=== PATIENT | female | born 1995 | race Caucasian/White ===

== ENCOUNTER → 2016-06-24 | Outpatient (CLI) | payer BC ==
[~2016-06-24] MED LIST: AZIT250T PO; FLUORIDE PO; MULT-506 PO; PRED20TA PO
[2016-06-28 00:01] LABS: CHLAMYDIA TRACH RNA*** NOT DETECTED (NOT DETECTED); GC (NEIS GONORRHOEAE)RNA** NOT DETECTED (NOT DETECTED)
== END | disposition home or self-care (01) ==
LOC: C.LABSPEC 17:47
PROVIDERS: ATTEND Obstetrics & Gynecology
DX: N89.8 Other specified noninflammatory disorders of vagina (principal)

== ENCOUNTER → 2016-06-24 | Outpatient (CLI) | payer BC | END | disposition home or self-care (01) | LOC: C.PAPS 10:06 | PROVIDERS: ATTEND Obstetrics & Gynecology | DX: Z01.419 Encounter for gynecological examination (general) (routine) without abnormal findings (principal) ==

== ENCOUNTER → 2016-10-14 | Outpatient (CLI) | payer BC ==
[2016-10-14 13:03] LABS: CHOLESTEROL/HDL RATIO 2.3
== END | disposition home or self-care (01) ==
LOC: C.LAB 11:02
PROVIDERS: ATTEND Internal Medicine
DX: Z00.00 Encounter for general adult medical examination without abnormal findings (principal)

== ENCOUNTER → 2017-06-30 | Outpatient (CLI) | payer BC | END | disposition home or self-care (01) | LOC: C.PAPS 16:59 | PROVIDERS: ATTEND Obstetrics & Gynecology | DX: Z01.419 Encounter for gynecological examination (general) (routine) without abnormal findings (principal) ==

== ENCOUNTER → 2017-06-30 | Outpatient (CLI) | payer BC | END | disposition home or self-care (01) | LOC: C.LABSPEC 16:22 | PROVIDERS: ATTEND Obstetrics & Gynecology | DX: Z11.3 Encounter for screening for infections with a predominantly sexual mode of transmission (principal) ==

== ENCOUNTER → 2017-10-09 | Outpatient (CLI) | payer BC ==
[~2017-10-09] MED LIST changes: -AZIT250T PO; +BUPR-79 PO; +BUPRTAB51 PO; +ESCI1TAB10 PO; -FLUORIDE PO; +OXYC-57 PO; -PRED20TA PO
== END | disposition home or self-care (01) ==
LOC: C.LAB1850 09:12
PROVIDERS: ATTEND Physician Assistant
DX: Z00.00 Encounter for general adult medical examination without abnormal findings (principal)

== ENCOUNTER 2018-10-28 13:23 | Inpatient (IN) ==
[2018-10-28 14:52] LABS: Appearance Urine Clear (Clear); Bilirubin Urine Negative (Negative); Blood Urine Negative (Negative); Color Urine Yellow; Glucose Urine UA Negative (Negative); Ketones Urine Negative (Negative); Leukocyte Esterase Urine Negative (Negative); Nitrite Urine Negative (Negative); Protein Urine Negative (Negative); Specific Gravity Urine 1.012 (1.000-1.030); Urobilinogen Urine Negative (Negative); pH Urine 6.5 (4.5-7.5)
[2018-10-28 15:02] LABS: Basophils # (auto) 0.03 K/uL (0-0.2); Basophils % (auto) 0.4 %; Eosinophils # (auto) 0.05 K/uL (0-0.5); Eosinophils % (auto) 0.6 %; Hematocrit (blood only) 40.1 % (37-47); Hemoglobin 13.9 g/dL (12.0-16.0); Immature Granulocytes # (auto) 0.01 K/uL (0.00-0.02); Immature Granulocytes % (auto) 0.1 %; Lymphocytes # (auto) 1.76 K/uL (1.2-3.4); Lymphocytes % (auto) 22.7 %; Mean Corpuscular Hgb Conc 34.7 g/dL (32-36); Mean Corpuscular Volume 87.2 fL (80-100); Mean Platelet Volume 9.6 fL (7.4-10.4); Monocytes # (auto) 0.77 K/uL (0.11-0.59); Monocytes % (auto) 9.9 %; Neutrophils # (auto) 5.15 K/uL (1.4-6.5); Neutrophils % (auto) 66.3 %; Platelet Count 187 K/uL (130-400); RDW Coefficient of Variation 12.4 % (11.5-14.5); White Blood Count 7.77 K/uL (4.8-10.8)
[2018-10-28 15:12] LABS: Amphetamines+Metham, Urine Neg (Neg); Barbiturates, Urine Neg (Neg); Benzodiazepine, Urine Neg (Neg); Cocaine, Urine Neg (Neg); MDMA (Ecstacy), Urine Neg (Neg); Methadone, Urine Neg (Neg); Opiate, Urine Neg (Neg); Phencyclidine, Urine Neg (Neg)
[2018-10-28 15:22] LABS: Albumin Level 4.2 gm/dl (3.4-5.0); BUN Creatinine Ratio 17.8 (10-20); Creatinine Clr Calc Pharmacy 111.8 ml/min; Est GFR (African American) 145.8; Est GFR (Non-African American) 125.8; Potassium 3.9 mmol/L (3.5-5.1)
[2018-10-28 15:24] LABS: Acetaminophen < 2 ug/ml (10-30); Salicylate < 1.7 mg/dl (2.8-20)
[2018-10-28 15:32] LABS: Albumin Globulin Ratio 1.4 (0.9-2); Bilirubin,Total 0.5 mg/dl (0.2-1); Total Protein 7.2 gm/dl (6.4-8.2)
[2018-10-28 16:07] LABS: Pregnancy Test, Serum Negative (Negative)
--- NOTE | 2018-10-28 16:21 | Emergency Department Note ---
Entered by Mariusz Calix acting as a scribe for Lala Larkin DO History of Present Illness General Chief complaint: Mental Health Evaluation Stated complaint: MENTAL HEALTH EVALUATION Time Seen by Provider: 10/28/18 13:58 Source: patient and other (boyfriend and lead case manager) History of Present Illness Onset (ago): month(s) (few) Location: head Pain Consistency: + other (worsening) Quality: + other (anxiety and depression) Associated symptoms: + loss of appetite (slight) and + other (+overwhelming stress; +wants to hurt self; +cut onleft wrist; +sleeping a little less; +suicidal ideation; -dizziness; -bowel issues; -urinary issues; -menstrual cycle issues) The patient is a 23 year old female who presents to the Emergency Room with co mplaints of worsening anxiety and depression over the past few months. The patient reports that she feels very stressed recently and that it has become overwhelming. The patient notes she started taking Pristiq in the last few weeks of September. The patient reports that she feels the medication has made her feel slightly better, but she notes she can not [employer] the true effect that it has had due to the her grandmother passing away last week. The patient does note that before the medicine, she would uncontrollably cry, but these symptoms have improved due to Pristiq. The patient notes a history of anxiety and depression, but she reports feeling worse lately with stress. The patient notes going to [facility] for therapy. The patient and her boyfriend report that therapy has helped. The patient states that it has gotten to the point where she wants to hurt herself. The patient reports that the first time she felt like this was in high school, but she notes these feelings have increased in the past 8 months. The patient notes she has cut her wrists 4 times in her life, but the boyfriend of the the patient reports that the patient has cut her wrist twice in the past couple months. The patient states she cuts herself more to relieve stress than wanting to . She notes that she has only cut her wrist and never has cut abdomen or legs. The boyfriend reports the patient woke him up in the middle of the night last night crying, real anxious, and kept saying that she "does not want to be here". The patient states that she knows she needs to resolve a lot of anxiety in her life that she does not know how to resolve, and she states that this is what causes her to cut her wrist. The patient notes she used a wine bottle backpackers manager to cut her left wrist last night. The patient believes she has had a recent tetanus shot, but the patient notes she used an alcohol wipe before the cut. The patient states that she has been sleeping and eating a little less recently, but the patient links the decreased appetite with new medication. The patient denies dizziness, bowel issues, urinary issues, or menstrual cycle issues. The patient denies smoking or using recreational drugs. She notes drinking alcohol socially about 2-3 times a month. 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 Melissa-[employer] Code Enforcement Officer reports that the patient stated to her that suicide would be easier than dealing with everything in her life. Home Medications Home Medications Medication Instructions Recorded Confirmed Type desvenlafaxine succinate [Pristiq] 50 mg PO QAM 10/28/18 10/28/18 History lorazepam [Ativan] 0.5 mg PO BID PRN 10/28/18 10/28/18 History Allergies Allergy/AdvReac Type Severity Reaction Status Date / Time No Known Allergies Allergy Severe Verified 08/09/17 11:15 Past Med/Surg History Medical History History of intrauterine contraceptive device Surgical History Hx of laparoscopy Family History Grandmother (Maternal) Hx of diabetes mellitus Mother Hx of endometriosis Aunt Hx of endometriosis Grandfather (Maternal) Family history of hypertension Social History Preferred Language: Kyrgyz Communication Ability: Effective Quality Director Required: No Beliefs That Will Affect Care: None Current Living Situation: Parent current occupational status: employed and student 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 and A total of 10 systems reviewed and were otherwise negative Physical Exam Vital Signs Vital Signs - 24 hr 10/28/18 13:40 10/28/18 15:49 10/28/18 17:29 Temperature 37.2 C Temperature Source Oral Sepsis Recent Fever Within 48 Hours No Sepsis New/Unexplained Change in Mental Status No Sepsis Action Taken by Nursing No Action Required Pulse Rate 83 73 Pulse Rate [Finger] 73 Respiratory Rate 18 18 18 Respiratory Depth Normal Blood Pressure 128/75 135/66 Blood Pressure [Left Arm] 117/66 Blood Pressure Mean 92 Blood Pressure Mean [Left Arm] 83 Pulse Oximetry 98 99 99 Oxygen Delivery Method Room Air Room Air Room Air GENERAL: alert, well appearing, well nourished, no distress, non-toxic EYE EXAM: normal conjunctiva, PERRL and EOM's grossly intact OROPHARYNX: no exudate, no erythema, lips, buccal mucosa, and tongue normal and mucous membranes are moist NECK: supple, no nuchal rigidity, no adenopathy, non-tender LUNGS: Clear to auscultation. Normal chest wall mechanics, no w/r/r HEART: no murmurs, S1 normal and S2 normal ABDOMEN: abdomen soft, non-tender, normo-active bowel sounds, no masses, no rebound or guarding. BACK: Back is symmetrical on inspection and there is no deformity, no midline t enderness, no CVA tenderness. SKIN: no rashes and no bruising UPPER EXTREMITIES: upper extremities are grossly normal. Superficial laceration noted to distal ventral left forearm with no active bleeding. LOWER EXTREMITIES: No pitting edema. FROM, nml pulses b/l. NEURO EXAM: Normal sensorium, cranial nerves II-XII grossly intact, normal speech, no gross weakness of arms, no gross weakness of legs. Course 1416: Past medical records reviewed. The patient was evaluated in room A5. A complete history and physical exam was performed. 1645: Patient seen and evaluated by psychiatric lead case manager, initially Melissa and then additional evaluation by Martinez. Case referred to [facility] S. for possible admission. 1735: 201 signed by myself. Pt admitted to 3S. Medical Decision Making Differential Diagnosis Differential diagnosis: Etiologies such as mood disorder, infection, hypoglycemia, electrolyte abnormalities, cardiac sources, intracerebral event, toxicologic, neurologic, as well as others were entertained. Medical Records Attestation: I reviewed the patient's medical records. Home Medications Current Medication List: was personally reviewed by me Laboratory Data Attestation: I reviewed the patient's lab results. Result diagrams: 10/28/18 14:48 10/28/18 14:48 Lab Results 10/28/18 10/28/18 10/28/18 Range/Units 13:52 13:52 14:48 WBC 7.77 (4.8-10.8) K/uL RBC 4.60 (4.2-5.4) M/uL Hgb 13.9 (12.0-16.0) g/dL Hct 40.1 (37-47) % MCV 87.2 (80-100) fL MCH 30.2 (25-34) pg MCHC 34.7 (32-36) g/dL RDW Std Deviation 40.0 (36.4-46.3) fL RDW Coeff of José Miguel 12.4 (11.5-14.5) % Plt Count 187 (130-400) K/uL MPV 9.6 (7.4-10.4) fL Immature Gran % (Auto) 0.1 % Neut % (Auto) 66.3 % Lymph % (Auto) 22.7 % Donley % (Auto) 9.9 % Eos % (Auto) 0.6 % Baso % (Auto) 0.4 % Immature Gran # (Auto) 0.01 (0.00-0.02) K/uL Neut # (Auto) 5.15 (1.4-6.5) K/uL Lymph # (Auto) 1.76 (1.2-3.4) K/uL Donley # (Auto) 0.77 H (0.11-0.59) K/uL Eos # (Auto) 0.05 (0-0.5) K/uL Baso # (Auto) 0.03 (0-0.2) K/uL Sodium (136-145) mmol/L Potassium (3.5-5.1) mmol/L Chloride (98-107) mmol/L Carbon Dioxide (21-32) mmol/L Anion Gap (3-11) BUN (7-18) mg/dl Creatinine (0.6-1.2) mg/dl Est Cr Clr Drug Dosing ml/min Est GFR ( Amer) Est GFR (Non-Af Amer) BUN/Creatinine Ratio (10-20) Glucose (70-99) mg/dl Calcium (8.5-10.1) mg/dl Total Bilirubin (0.2-1) mg/dl AST (15-37) U/L ALT (12-78) U/L Alkaline Phosphatase (45-117) U/L Total Protein (6.4-8.2) gm/dl Albumin (3.4-5.0) gm/dl Globulin (2.5-4.0) gm/dl Albumin/Globulin Ratio (0.9-2) TSH (0.300-4.500) uIu/ml HCG, Qual (Negative) Urine Color Yellow Urine Appearance Clear (Clear) Urine pH 6.5 (4.5-7.5) Ur Specific [place] 1.012 (1.000-1.030) Urine Protein Negative (Negative) Urine Glucose (UA) Negative (Negative) Urine Ketones Negative (Negative) Urine Blood Negative (Negative) Urine Nitrite Negative (Negative) Urine Bilirubin Negative (Negative) Urine Urobilinogen Negative (Negative) Ur Leukocyte Esterase Negative (Negative) Salicylates (2.8-20) mg/dl Urine Opiates Screen Neg (Neg) Ur Methadone, Qual Neg (Neg) Acetaminophen (10-30) ug/ml Urine Barbiturates Neg (Neg) Ur Phencyclidine (PCP) Neg (Neg) U Amphetamin/Meth Scrn Neg (Neg) MDMA (Ecstasy) Screen Neg (Neg) U Benzodiazepines Scrn Neg (Neg) Ur Cocaine Metabolite Neg (Neg) U Marijuana (THC) Screen Neg (Neg) Ethyl Alcohol mg/dL (0-3) mg/dl 10/28/18 10/28/18 10/28/18 Range/Units 14:48 14:48 14:48 WBC (4.8-10.8) K/uL RBC (4.2-5.4) M/uL Hgb (12.0-16.0) g/dL Hct (37-47) % MCV (80-100) fL MCH (25-34) pg MCHC (32-36) g/dL RDW Std Deviation (36.4-46.3) fL RDW Coeff of José Miguel (11.5-14.5) % Plt Count (130-400) K/uL MPV (7.4-10.4) fL Immature Gran % (Auto) % Neut % (Auto) % Lymph % (Auto) % Donley % (Auto) % Eos % (Auto) % Baso % (Auto) % Immature Gran # (Auto) (0.00-0.02) K/uL Neut # (Auto) (1.4-6.5) K/uL Lymph # (Auto) (1.2-3.4) K/uL Donley # (Auto) (0.11-0.59) K/uL Eos # (Auto) (0-0.5) K/uL Baso # (Auto) (0-0.2) K/uL Sodium 141 (136-145) mmol/L Potassium 3.9 (3.5-5.1) mmol/L Chloride 107 (98-107) mmol/L Carbon Dioxide 27 (21-32) mmol/L Anion Gap 7.0 (3-11) BUN 11 (7-18) mg/dl Creatinine 0.64 (0.6-1.2) mg/dl Est Cr Clr Drug Dosing 111.8 ml/min Est GFR ( Amer) 145.8 Est GFR (Non-Af Amer) 125.8 BUN/Creatinine Ratio 17.8 (10-20) Glucose 93 (70-99) mg/dl Calcium 9.0 (8.5-10.1) mg/dl Total Bilirubin 0.5 (0.2-1) mg/dl AST 14 L (15-37) U/L ALT 32 (12-78) U/L Alkaline Phosphatase 63 (45-117) U/L Total Protein 7.2 (6.4-8.2) gm/dl Albumin 4.2 (3.4-5.0) gm/dl Globulin 3.0 (2.5-4.0) gm/dl Albumin/Globulin Ratio 1.4 (0.9-2) TSH 1.180 (0.300-4.500) uIu/ml HCG, Qual (Negative) Urine Color Urine Appearance (Clear) Urine pH (4.5-7.5) Ur Specific [place] (1.000-1.030) Urine Protein (Negative) Urine Glucose (UA) (Negative) Urine Ketones (Negative) Urine Blood (Negative) Urine Nitrite (Negative) Urine Bilirubin (Negative) Urine Urobilinogen (Negative) Ur Leukocyte Esterase (Negative) Salicylates < 1.7 L (2.8-20) mg/dl Urine Opiates Screen (Neg) Ur Methadone, Qual (Neg) Acetaminophen < 2 L (10-30) ug/ml Urine Barbiturates (Neg) Ur Phencyclidine (PCP) (Neg) U Amphetamin/Meth Scrn (Neg) MDMA (Ecstasy) Screen (Neg) U Benzodiazepines Scrn (Neg) Ur Cocaine Metabolite (Neg) U Marijuana (THC) Screen (Neg) Ethyl Alcohol mg/dL < 3.0 (0-3) mg/dl 10/28/18 Range/Units 14:55 WBC (4.8-10.8) K/uL RBC (4.2-5.4) M/uL Hgb (12.0-16.0) g/dL Hct (37-47) % MCV (80-100) fL MCH (25-34) pg MCHC (32-36) g/dL RDW Std Deviation (36.4-46.3) fL RDW Coeff of José Miguel (11.5-14.5) % Plt Count (130-400) K/uL MPV (7.4-10.4) fL Immature Gran % (Auto) % Neut % (Auto) % Lymph % (Auto) % Donley % (Auto) % Eos % (Auto) % Baso % (Auto) % Immature Gran # (Auto) (0.00-0.02) K/uL Neut # (Auto) (1.4-6.5) K/uL Lymph # (Auto) (1.2-3.4) K/uL Donley # (Auto) (0.11-0.59) K/uL Eos # (Auto) (0-0.5) K/uL Baso # (Auto) (0-0.2) K/uL Sodium (136-145) mmol/L Potassium (3.5-5.1) mmol/L Chloride (98-107) mmol/L Carbon Dioxide (21-32) mmol/L Anion Gap (3-11) BUN (7-18) mg/dl Creatinine (0.6-1.2) mg/dl Est Cr Clr Drug Dosing ml/min Est GFR ( Amer) Est GFR (Non-Af Amer) BUN/Creatinine Ratio (10-20) Glucose (70-99) mg/dl Calcium (8.5-10.1) mg/dl Total Bilirubin (0.2-1) mg/dl AST (15-37) U/L ALT (12-78) U/L Alkaline Phosphatase (45-117) U/L Total Protein (6.4-8.2) gm/dl Albumin (3.4-5.0) gm/dl Globulin (2.5-4.0) gm/dl Albumin/Globulin Ratio (0.9-2) TSH (0.300-4.500) uIu/ml HCG, Qual Negative (Negative) Urine Color Urine Appearance (Clear) Urine pH (4.5-7.5) Ur Specific [place] (1.000-1.030) Urine Protein (Negative) Urine Glucose (UA) (Negative) Urine Ketones (Negative) Urine Blood (Negative) Urine Nitrite (Negative) Urine Bilirubin (Negative) Urine Urobilinogen (Negative) Ur Leukocyte Esterase (Negative) Salicylates (2.8-20) mg/dl Urine Opiates Screen (Neg) Ur Methadone, Qual (Neg) Acetaminophen (10-30) ug/ml Urine Barbiturates (Neg) Ur Phencyclidine (PCP) (Neg) U Amphetamin/Meth Scrn (Neg) MDMA (Ecstasy) Screen (Neg) U Benzodiazepines Scrn (Neg) Ur Cocaine Metabolite (Neg) U Marijuana (THC) Screen (Neg) Ethyl Alcohol mg/dL (0-3) mg/dl Blood Pressure Blood Pressure Findings: Normal blood pressure MDM Narrative Patient with past history of anxiety and depression, however recently more suicidal with self-harm. Patient already with outpatient psychiatrist and counselor, however symptoms appear to be worsening. Patient was agreeable for inpatient treatment, and was admitted to 3 S. Patient calm and cooperative here, labs otherwise reassuring. Impression & Plan Depression, Anxiety, Suicidal ideation Discharge Plan Visit Data *Final* Discharge Date/Time: 10/28/18 17:29 Chief Complaint: Mental Health Evaluation Stated Complaint: MENTAL HEALTH EVALUATION ED Provider: Lala Larkin Discharge Problem: Depression, Anxiety, Suicidal ideation Patient Disposition: Admitted As Inpatient Discharge Instructions Interventions: ED Discharge Assessment Last Done: 10/28/18 17:29 Discharge Problem: Depression Qualifiers: Depression Type: major depressive disorder Major depression recurrence: recurrent Active/Remission status: currently active Major depression episode severity: moderate Qualified Code(s): F33.1 - Major depressive disorder, recurrent, moderate The scribe's documentation has been prepared under my direction and personally reviewed by me in its entirety. I confirm that the note above accurately reflects all work, treatment, procedures, and medical decision making performed by me.
[2018-10-28] MEDS ORDERED: ACETAMINOPHEN 325 MG TAB PO PRN (16:56)
[2018-10-28] MEDS ORDERED: ALUMINUM/MAGNESIUM SUSP 30 ML UDC PO PRN (16:56)
[2018-10-28] MEDS ORDERED: SODIUM CHLORIDE 0.65% NA SOLN 45 ML (OCEAN) PRN (16:56)
[2018-10-28] MEDS ORDERED: BISMUTH SUBSALICYLATE PER ML OMNICELL CHARGE PO PRN (16:56)
[2018-10-28] MEDS ORDERED: MAGNESIUM HYDROXIDE SUSP 30 ML UDC PO PRN (16:56)
[2018-10-28] MEDS ORDERED: LORazepam 0.5 MG TAB PO PRN (16:58)
[2018-10-29] MEDS ORDERED: DESVENLAFAXINE SUCCINATE PO SCH (09:00)
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
[2018-10-29] MEDS ORDERED: NON-FORMULARY PATIENT'S OWN MED ONE (13:23)
[2018-10-29] MEDS ORDERED: BACITRACIN OINT 15 GM TUBE EXT PRN (14:04)
[2018-10-30] MEDS: DESVENLAFAXINE SUCCINATE PO SCH (07:58)
--- NOTE | 2018-10-30 09:01 | Psychiatric Progress Note ---
Date of Service October 30, 2018 Impression / Recommendations Impression 23-year-old female admitted voluntarily for inpatient psychiatric treatment the evening of 10/28/2018 due to worsening depression, anxiety, and reports of suicidal ideation. Patient has experienced several recent situational stressors including the of her grandmother within the past 2 weeks, relationship stressors with her boyfriend just over 1 year, and increased difficulty at work. Patient had endorsed passive suicidal ideation, verbalizing that suicide would be "easier than dealing with everything in her life." Patient was admitted voluntarily for medication adjustments and more intensive therapy to target the above concerns. Patient had recently been started on desvenlafaxine, and was titrated to a dose of 50 mg within the last 3 weeks. Pt tolerating titration to 100mg daily without reported concerns. Pt did participate in family meeting with boyfriend this afternoon. At this time, patient is considered to still be at high risk of harm to self if she is discharged prematurely without adequate medication of risk factors. (1) Suicidal ideation: 10/29 - Admitted to a locked inpatient behavioral health unit, on q15 minute safety checks - Encourage medication initiation/adjustments as indicated - Encourage participation in group and recreational therapies - Gather collateral information from outpatient providers - Suggest family meeting to involve outpatient supports in safety planning - Arrange appropriate aftercare 10/30 - Denies suicidal ideation; continue monitoring to ensure resolution of SI is consistent (2) Anxiety: 10/29 - Titrate desvenlafaxine to 100mg daily; received 50mg dose this afternoon in addition to scheduled 50mg qAM dose - If tolerability concerns, can also call in 25mg to retail pharmacy and titration to 75mg daily - will observe to see if this lower dose is necessary - Home lorazepam continued, available 0.5mg BID prn; prn hydroxyzine is also available for acute anxiety - Encourage participation in group and recreational programming - Encourage development of healthy and effective coping strategies - Patient encouraged to consider who she would like involved with a family meeting; recommending contact with the boyfriend at the very least, as relationship stressors seem to be playing a rather significant role in presentation - Coordinate care with Dr. Cheyenne Alexander and Grisel Figueroa LCSW at [facility] 10/30 - Continue desvenlafaxine at 100mg; tolerating well thus far - Continue lorazepam 0.5mg BID - Participated in family meeting with boyfriend today - Continue to encourage development of healthy and effective coping strategies (3) Depression: 10/29 - As above - titrating desvenlafaxine to 100mg daily 10/30 - As above (4) Self-inflicted laceration of wrist: 10/29 - Superficial excoriation to left wrist visualized; 5-10 healing lacerations are observed, no evidence of drainage or infection - Continue to monitor healing process - Bacitracin available prn to prevent infection - Encourage development of healthy and effective coping strategies to take the place of self-harm urges Inventory Assets Strengths: support of family/boyfriend; established outpatient providers; intelligence Needs: healthy/effective coping strategies; honest discussion with supports of stressors leading to admission Risk Factors Assessment Male: No : Yes Do You Have Access To A Gun?: No Health Problems: No Mental Health Diagnoses: Yes Substance Use Disorders: No Previous Attempt: No Family History of Suicide: Yes Previous Psychiatric Hospitalization: No Hopelessness: No Smoker: No Protective Factors Assessment Alevism Beliefs: Yes : No Responsible for Young Children: No Employed: Yes ([employer]) Stable Relationships: Yes Supportive Family: Yes Good Rapport with Provider: Yes Interval History Identifying Information AP MINAYA is a 23-year-old F who currently lives in [place], having recently moved in with her boyfriend, Willi. Pt has a history of depression and anxiety, and was admitted on 10/28/18 17:45 on a 201 voluntary commitment for worsening anxiety, depression, and SI with self-inflicted laceration to her left wrist. Chief Complaint "I feel better." Review of Systems Notes Constitutional: denied Cardiovascular: denied Respiratory: denied Gastrointestinal: denied Neurological: denied Psychiatric: denies symptoms other than stated above Total of at least 10 systems reviewed, pertinent positives as above and in HPI. Sleep Information Total Hours of Sleep: 7.5 Meal Information Percent Meal Consumed - Breakfast: 75 Percent Meal Consumed - Lunch: 75 Percent Meal Consumed - Dinner: 100 Subjective Subjective Patient was seen & assessed and interval progress reviewed with nursing and social work. Staff report the patient has completed her safety plan. She is scheduled for a meeting with her boyfriend this afternoon. She did submit a 72- hour notice last evening due to feeling "homesick" and reporting improvement in condition. Patient was seen today to assess progress since admission. Pt reports she is feeling "better" and has been noticing improvement in condition after group discussions. She states, "I feel like I have a little bit better of resources now too." She states that she was anxious about her meeting today, but found a lorazepam to be helpful following the meeting. Pt states her meeting with her boyfriend went well, feeling he was reassured that the patient's condition is not related to him "doing something wrong, I think it helped to have a professional tell him." She states that she feels she is better able to "cope" with stress and has found some topics discussed in groups to be helpful. Pt denies SI, and states she is "homesick" - explaining this was the reasoning for submitting her 72-hour notice. Pt denies other acute concerns today. Physical Exam Psychiatric Orientation: alert, oriented x 3 and cooperative (and pleasant) Apperance: appropriately dressed, appropriately groomed and appeared stated age Eye Contact: good eye contact Motor Behavior: steady gait and station and no abnormal motor movements Speech: normal rate/rhythm/volume of speech Affect: + depressed affect (ongoing, but mildly improved) and + anxious affect (mildly) Mood: + anxious mood ("Still anxious from the meeting, but getting better") Thought Process: goal directed thought process, linear/logical thought process and clear/coherent thought process Thought Content: reality based without delusions Suicidal Thoughts: denies suicidal thoughts and denies suicidal intent Homicidal Thoughts: denies homicidal thoughts Hallucinations: no auditory hallucinations and no visual hallucinations Cognition: recent memory grossly intact, remote memory grossly intact, attention grossly intact and language grossly intact Estimated Intelligence: consistent with education level Insight: + fair insight Judgement: + fair judgement Vital Signs (Past 24 Hours) Last Vital Signs Temp 36.8 C 10/30/18 06:00 Pulse 111 H 10/30/18 06:36 Resp 16 10/30/18 06:00 BP 93/60 L 10/30/18 06:36 Pulse Ox 99 10/28/18 18:13 Results & Data Current Inpatient Medications Current Inpatient Medications: Current Inpatient Medications Acetaminophen (Tylenol) 650 mg PO Q4H PRN PRN Reason: Headache or Minor Fever Stop: 11/27/18 16:55 Al Hydrox/Mg Hydrox/Simethicone (Maalox) 30 ml PO Q4H PRN PRN Reason: GI Upset Stop: 11/27/18 16:55 Bacitracin (Bacitracin) 1 appln EXT TID PRN PRN Reason: Affected Skin Folds Stop: 11/28/18 14:03 Bismuth Subsalicylate (Kaopectate) 15 ml PO PRN PRN PRN Reason: Loose Stool Stop: 11/27/18 16:55 Desvenlafaxine Succinate (Pristiq) 2 ea PO DAILY PAULA Stop: 11/29/18 08:59 Last Admin: 10/30/18 07:58 Dose: 2 ea Documented by: Hydroxyzine HCl (Vistaril) 25 mg PO Q4H PRN PRN Reason: Anxiety Stop: 11/27/18 16:55 Hydroxyzine HCl (Vistaril) 50 mg PO HSZ PRN PRN Reason: Insomnia Stop: 11/27/18 16:55 Lorazepam (Ativan) 0.5 mg PO BID PRN PRN Reason: Anxiety Stop: 11/27/18 16:57 Magnesium Hydroxide (Milk Of Magnesia) 30 ml PO DAILY PRN PRN Reason: Heartburn Stop: 11/27/18 16:55 Sodium Chloride (Dooly Nasal) 1 - 2 sprays NA PRN PRN PRN Reason: Nasal Dryness/Congestion Stop: 11/27/18 16:55 Mental Health & Subst Abuse Tx Psychiatrist Name of Psychiatrist: Dorothy Alexander Psychiatrist's Date of Appointment with Psychiatrist: 11/08/18 Time of Appointment with Psychiatrist: 9:20 a.m. Psychiatric Appointment Comment: [facility] Therapist Name of Therapist: Dorothy Figueroa Therapist's Date of Therapist Appointment: 11/08/18 Time of Therapist Appointment: 10:00 a.m. Therapy Appointment Comment: [address] [facility] Denture Finisher Name of Denture Finisher: Denies Post Discharge Appointments Primary Care Physician Name Of Family Doctor: [facility] - Dr. Fisher Primary Care Provider Appointment Comment: [address], [place] [address] Other #1: Name of Aftercare Appointment: Options for couples therapy: [facility] Phone Number of Aftercare Appointment: [phone] Aftercare Appointment Comment: Out of pocket expense (does not take [employer]): $100 Contact Information Discharge Discharge [address]: [address] [place] [address], [address], [place] [address] CPT Code CPT Code 41108 (1) Depression Active/Remission status: currently active Depression Type: major depressive disorder Major depression episode severity: moderate Major depression recurrence: recurrent Qualified Code(s): F33.1 - Major depressive disorder, recurrent, moderate (2) Self-inflicted laceration of wrist Encounter type: initial encounter Laterality: left Qualified Code(s): S61.512A - Laceration without foreign body of left wrist, initial encounter
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
[2018-10-31] MEDS: DESVENLAFAXINE SUCCINATE PO SCH (09:04)
== END 2018-10-31 11:00 | disposition home or self-care (01) | DRG 885 ==
LOC: ED 13:23 → 3S 17:29

== ENCOUNTER 2018-11-25 19:06 | Inpatient (IN) ==
[2018-11-25 19:40] LABS: Pregnancy Test, Urine Negative (Negative)
[2018-11-25 19:42] LABS: Appearance Urine Clear (Clear); Bacteria Urine Automated 1+ (Negative); Bilirubin Urine Negative (Negative); Blood Urine Negative (Negative); Color Urine Yellow; Epithelial Cell Urine Auto >30 /lpf (0-5); Glucose Urine UA Negative (Negative); Ketones Urine Trace (Negative); Leukocyte Esterase Urine Trace (Negative); Nitrite Urine Negative (Negative); Protein Urine Negative (Negative); RBC Urine Automated 0-4 /hpf (0-4); Specific Gravity Urine 1.028 (1.000-1.030); Urobilinogen Urine Negative (Negative); pH Urine 6.5 (4.5-7.5)
[2018-11-25 20:02] LABS: Basophils # (auto) 0.04 K/uL (0-0.2); Basophils % (auto) 0.5 %; Eosinophils % (auto) 1.3 %; Hematocrit (blood only) 38.9 % (37-47); Hemoglobin 13.5 g/dL (12.0-16.0); Immature Granulocytes # (auto) 0.01 K/uL (0.00-0.02); Immature Granulocytes % (auto) 0.1 %; Lymphocytes # (auto) 2.09 K/uL (1.2-3.4); Mean Corpuscular Hgb Conc 34.7 g/dL (32-36); Mean Corpuscular Volume 87.8 fL (80-100); Mean Platelet Volume 9.3 fL (7.4-10.4); Monocytes # (auto) 0.73 K/uL (0.11-0.59); Monocytes % (auto) 9.8 %; Neutrophils % (auto) 60.3 %; Platelet Count 196 K/uL (130-400); RDW Coefficient of Variation 12.7 % (11.5-14.5); RDW Standard Deviation 40.9 fL (36.4-46.3); Red Blood Count 4.43 M/uL (4.2-5.4); White Blood Count 7.47 K/uL (4.8-10.8)
[2018-11-25 20:04] LABS: Amphetamines+Metham, Urine Neg (Neg); Barbiturates, Urine Neg (Neg); Benzodiazepine, Urine Neg (Neg); Cocaine, Urine Neg (Neg); MDMA (Ecstacy), Urine Neg (Neg); Methadone, Urine Neg (Neg); Opiate, Urine Neg (Neg); Phencyclidine, Urine Neg (Neg)
[2018-11-25 20:24] LABS: Acetaminophen < 2 ug/ml (10-30); Aspartate Aminotransferase 11 U/L (15-37); BUN Creatinine Ratio 24.7 (10-20); Blood Urea Nitrogen 14 mg/dl (7-18); Calcium 8.8 mg/dl (8.5-10.1); Carbon Dioxide 24 mmol/L (21-32); Chloride 109 mmol/L (98-107); Creatinine Clr Calc Pharmacy 125.7 ml/min; Est GFR (African American) > 150.0; Est GFR (Non-African American) 129.9; Glucose 95 mg/dl (70-99); Potassium 3.6 mmol/L (3.5-5.1); Salicylate < 1.7 mg/dl (2.8-20); Sodium 141 mmol/L (136-145)
[2018-11-25 20:35] LABS: Alanine Aminotransferase 23 U/L (12-78); Albumin Globulin Ratio 1.2 (0.9-2); Alkaline Phosphatase 60 U/L (45-117); Bilirubin,Total 0.6 mg/dl (0.2-1); Globulin 3.3 gm/dl (2.5-4.0); Total Protein 7.3 gm/dl (6.4-8.2)
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
[2018-11-26] MEDS ORDERED: BISMUTH SUBSALICYLATE PER ML OMNICELL CHARGE PO PRN (00:51)
[2018-11-26] MEDS ORDERED: MAGNESIUM HYDROXIDE SUSP 30 ML UDC PO PRN (00:51)
[2018-11-26] MEDS ORDERED: ACETAMINOPHEN 325 MG TAB PO PRN (00:51)
[2018-11-26] MEDS ORDERED: ALUMINUM/MAGNESIUM SUSP 30 ML UDC PO PRN (00:51)
[2018-11-26] MEDS ORDERED: SODIUM CHLORIDE 0.65% NA SOLN 45 ML (OCEAN) PRN (00:51)
[2018-11-26] MEDS: DESVENLAFAXINE SUCCINATE PO SCH (08:54)
[2018-11-26] MEDS ORDERED: NON-FORMULARY PATIENT'S OWN MED PO SCH (09:00)
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
[2018-11-26] MEDS: BuPROPion XL 150 MG TABCR PO SCH (15:43)
[2018-11-27] MEDS: DESVENLAFAXINE SUCCINATE PO SCH (08:02)
[2018-11-27] MEDS: BuPROPion XL 150 MG TABCR PO SCH (08:02)
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
== END 2018-11-27 14:13 | disposition home or self-care (01) | DRG 885 ==
LOC: ED 19:06 → 3S 11-26 00:09 → SUATTDRO 11-26 00:09 → 3S 11-26 00:29
DX: T51.0X2A Toxic effect of ethanol, intentional self-harm, initial encounter; F41.9 Anxiety disorder, unspecified; Z79.899 Other long term (current) drug therapy; Z81.8 Family history of other mental and behavioral disorders; F33.1 Major depressive disorder, recurrent, moderate; T42.4X2A Poisoning by benzodiazepines, intentional self-harm, initial encounter

== ENCOUNTER 2021-06-05 06:20 | Inpatient (IN) ==
[2021-06-05] MEDS ORDERED: PENICILLIN G POTASSIUM 6 MU in DEXTROSE 5% 250 ML IV STA (07:42)
[2021-06-05] MEDS ORDERED: OXYTOCIN 30 UNITS/500 ML BAG IV PRN ×3 (07:42→15:25)
[2021-06-05 08:17] LABS: Hematocrit (blood only) 34.4 % (37-47); Hemoglobin 11.9 g/dL (12.0-16.0); Mean Corpuscular Hemoglobin 30.7 pg (25-34); Mean Corpuscular Hgb Conc 34.6 g/dL (32-36); Mean Corpuscular Volume 88.7 fL (80-100); Mean Platelet Volume 9.9 fL (7.4-10.4); Platelet Count 156 K/uL (130-400); RDW Coefficient of Variation 12.9 % (11.5-14.5); RDW Standard Deviation 41.6 fL (36.4-46.3); Red Blood Count 3.88 M/uL (4.2-5.4); White Blood Count 10.68 K/uL (4.8-10.8)
[2021-06-05] MEDS: LACTATED RINGER'S 1,000 ML IV PRN ×2 (08:52→11:05)
[2021-06-05] MEDS ORDERED: PENICILLIN G POTASSIUM 3 MU in DEXTROSE 5% 100 ML IV PRN (10:43)
[2021-06-05] MEDS ORDERED: diphenhydrAMINE 50 MG/ML VIAL IV PRN (10:57)
[2021-06-05] MEDS ORDERED: fentaNYL 2MCG/ML ROPIVACAINE 1.25MG/ML 100 ML BAG EPI PRN (10:57)
[2021-06-05] MEDS ORDERED: NALOXONE HCL 0.4 MG/1 ML VIAL/CARP IV PRN (10:57)
[2021-06-05] MEDS ORDERED: ePHEDrine sulfate 50 MG/ML AMP IV PRN (10:57)
[2021-06-05] MEDS ORDERED: NALOXONE HCL 1 MG in SODIUM CHLORIDE 0.9% 1000ML 1,000 ML IV PRN (10:57)
[2021-06-05] MEDS ORDERED: NALBUPHINE HCL INJ 10 MG/ML AMP IV PRN (10:57)
--- NOTE | 2021-06-05 10:57 | Anesthesiology Consultation ---
Date of Service June 05, 2021 Assessment & Plan ASA ASA2 Proposed Anesthesia Anesthesia Type: Labor Epidural Risk / Benefits Reviewed With: PT / POA / Parent / Guardian, Accepts Plan and Informed Consent Obtained History Height/Weight Height: 5 ft 7 in Weight: 64.41 kg Allergies Allergy/AdvReac Type Severity Reaction Status Date / Time No Known Allergies Allergy Severe Verified 06/02/21 11:31 Medications Home Medications Medication Instructions Recorded Confirmed Last Taken bupropion HCl 200 mg tablet,12 hr 200 mg PO QAM 12/08/19 06/05/21 06/04/21 sustained-release duloxetine 30 mg capsule,delayed 30 mg PO DAILY 12/08/19 06/05/21 06/04/21 release duloxetine 60 mg capsule,delayed 60 mg PO DAILY 12/08/19 06/05/21 06/04/21 release prenat.vits,eduardo,ihr-toxw-tassr 1 tab PO DAILY 11/03/20 06/05/21 06/04/21 acetone (urine) test (Ketone Urine #50 ea 05/04/21 06/02/21 Unknown Test) blood sugar diagnostic (OneTouch #150 ea 05/04/21 06/02/21 Unknown Verio test strips) blood-glucose meter (OneTouch #1 ea 05/04/21 06/02/21 Unknown Verio Flex meter) lancets 33 gauge (OneTouch Delica #150 ea 05/04/21 06/02/21 Unknown Plus Lancet) docusate sodium 50 mg capsule 100 mg PO BID 06/05/21 06/05/21 06/05/21 Active Medications Generic Name Dose Route Start Last Admin Trade Name Antonino PRN Reason Stop Dose Admin Lactated Ringer's 1,000 mls @ 125 mls/hr 06/05/21 07:42 06/05/21 11:05 Lr IV 06/07/21 07:41 125 mls/hr .Q8H PRN Administration L&D Protocol Protocol Oxytocin 30 units in 500 mls @ 2 mls/hr 06/05/21 08:49 06/05/21 10:03 Pitocin IV 06/07/21 08:48 0.12 units/hr .Q24H PRN 2 mls/hr Labor Induction/Augmentation Administration Protocol 0.12 UNITS/HR Ropivacaine 100 ml 06/05/21 10:57 06/05/21 11:12 Fentanyl 2mcg/Ml Ropivacaine 1.25mg/Ml 100 Ml Bag EPI 06/06/21 10:56 100 ml PRN PRN Administration Pain R/T Labor Protocol Past Medical History Medical History Encounter for IUD removal History of intrauterine contraceptive device mirena 06/2017 Hypotension Presence of IUD mirena 06/2017 Exercise / Class Metabolic Activity II 4-5 Yardwork/Stairs/Walk up hill Past Family History Family History Grandmother (Maternal) Hx of diabetes mellitus Diabetes Breast cancer Mother Hx of endometriosis Endometriosis Aunt Hx of endometriosis Endometriosis Grandfather (Maternal) Family history of hypertension Hypertension Denies family history of Ovarian cancer Prostate cancer Migraine Myocardial infarction FH: thromboembolic disease Colorectal cancer Past Surgical History Surgical History Encounter for intrauterine device placement Hx of laparoscopy July 2017, 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 Hx of tonsillectomy Past Anesthesia History No Hx of Anesthesia Complications and No Family Hx of Anesthesia Complications History of PONV No Hx of PONV and No Hx of Motion Sickness Social History Smoking Status: Never smoker Hx Alcohol Use: No Hx Substance Use: No substance use type: does not use Review of Systems denies fever/cough/ colds/ chest pain/ SOB/ JEFE denies JEFE Physical Exam Vital Signs Last Vital Signs Temp 36.9 C 06/05/21 09:50 Pulse 92 H 06/05/21 11:37 Resp 20 06/05/21 09:50 BP 125/70 06/05/21 11:37 Pulse Ox 94 06/05/21 11:37 ENMT Mouth: no TMJ abnormality and no dentition abnormality Thyromental Distance: > or= 3.5 Finger Breadths Mallampati Class: II Neck neck extension not limited Respiratory normal respiratory effort; no respiratory distress Auscultation: lungs clear to auscultation bilaterally Cardiovascular Rate/Rhythm: regular rate and regular rhythm Neurologic moves all extremities Psychiatric Orientation: alert and oriented x 3 Testing Laboratory Results 06/05/21 08:02
[2021-06-05] MEDS ORDERED: ePHEDrine sulfate 50 MG/ML AMP ONE (10:59)
[2021-06-05] MEDS ORDERED: BUPIVACAINE 0.25% 30 ML VIAL ONE (11:00)
[2021-06-05] MEDS ORDERED: SODIUM CHLORIDE 0.9% INJ 10 ML VIAL ONE (11:00)
[2021-06-05] MEDS ORDERED: fentaNYL 2MCG/ML ROPIVACAINE 1.25MG/ML 100 ML BAG EPI ONE (11:00)
[2021-06-05] MEDS ORDERED: fentaNYL citrate 100 MCG/2 ML VIAL ONE (11:00)
[2021-06-05] MEDS ORDERED: bisacodyL 10 MG SUPP PR PRN (15:25)
[2021-06-05] MEDS ORDERED: BENZOCAINE 20% AER SPR 82.5 GM CAN EXT PRN (15:25)
[2021-06-05] MEDS ORDERED: DIPHTHERIA/TETANUS/PERTUSSIS 0.5 ML SYR/VIAL IM ONE (15:25)
[2021-06-05] MEDS ORDERED: IBUPROFEN 600 MG TAB PO PRN (15:25)
[2021-06-05] MEDS ORDERED: HYDROCORTISONE ACETATE 25 MG SUPP PR PRN (15:25)
[2021-06-05] MEDS ORDERED: ACETAMINOPHEN 325 MG TAB PO PRN (15:25)
--- NOTE | 2021-06-05 15:48 | Anesthesia Procedure Note ---
Date of Service June 05, 2021 Anesthesia Post Epidural Note Vital Signs Vital Signs: Temp Pulse Resp BP Pulse Ox 36.7 C 80 20 125/73 93 06/05/21 11:35 06/05/21 15:35 06/05/21 09:50 06/05/21 15:35 06/05/21 15:22 Notes Mental Status: alert / awake / arousable and participated in evaluation Patient Amnestic to Procedure: Yes Nausea / Vomiting: adequately controlled Pain: adequately controlled Airway Patency, RR, SpO2: stable & adequate BP & HR: stable & adequate Hydration State: stable & adequate Anesthetic Complications: no major complications apparent and Pt Satisfied with anesthetic care
--- NOTE | 2021-06-05 16:51 | Delivery Summary ---
DATE OF SERVICE: 06/05/2021 PROCEDURE: Normal spontaneous vaginal delivery with bilateral labial laceration repair. SURGEON: Ronny Olmedo MD. PREOPERATIVE DIAGNOSES: 1. Single intrauterine at 36 weeks 4 days gestational age. 2. Spontaneous rupture of membranes. 3. Diet-controlled gestational diabetes. POSTOPERATIVE DIAGNOSES: 1. Single intrauterine at 36 weeks 4 days gestational age. 2. Spontaneous rupture of membranes. 3. Diet-controlled gestational diabetes. 4. Status post procedure. ESTIMATED BLOOD LOSS: 200 mL DRAINS: Straight cath at the completion of the case. URINE OUTPUT: Approximately 1200 mL via straight cath. COMPLICATIONS: None. FINDINGS: Viable female infant with weight and Apgars pending. INDICATIONS: The patient is a 26-year-old G1, P0, presented for rupture of membranes at 36 weeks 4 d ays gestational age. The patient was started on oxytocin per regular protocol and received an epidur al for anesthesia. She progressed in labor rapidly and pushed over 3 contractions to achieve deliver y. DESCRIPTION OF PROCEDURE: The patient progressed to 10 cm dilated, 100% effaced, positive 2-3 statio n, pushed over intact perineum with epidural anesthesia and delivered a viable female infant with celsa ght and Apgars as noted above. Head of the delivered in CORNELL position, restituted to left tra nsverse. Nuchal cord was noted. Body and shoulders quickly followed. was noted to be vigor ous soon after delivery and a 1 minute delayed cord clamping was initiated. Cord was then double cla mped and cut. taken over to the waiting nursery staff. Cord blood was obtained. Attention was then turned to delivery of the placenta, which was delivered intact, 3-vessel cord, gen tle cord traction. Right before delivery of placenta, the bladder was drained for approximately 1200 mL. On inspection of the perineum, vagina, cervix, there was noted to be bilateral labial laceration repairs, which were repaired with 3-0 Vicryl with interrupted stitch. Needle, sponge, and instrumen t counts were correct at the completion of the case. Both mother and were stable in the imme diate post-delivery. Job ID: [id number]
[2021-06-05] MEDS: DOCUSATE SODIUM 100 MG CAP PO SCH (21:25)
--- NOTE | 2021-06-06 09:09 | Obstetrical Progress Note ---
Date of Service June 06, 2021 Assessment & Plan (1) Encounter for care and examination after delivery: 26yo G1 day 1 S/P . Doing well. Routine care Subjective Ambulation: ambulating normally Voiding: no voiding problems Passing Gas:: Yes Diet Tolerance:: regular diet Lochia:: Moderate Feeding Type:: breast feeding Physical Exam Constitutional WD/WN, vitals as above Respiratory normal respiratory effort; no respiratory distress and no labored breathing Gastrointestinal (Abdomen) Inspection/Auscultation: abdomen normal to inspection; abdomen not distended Percussion/Palpation: abdomen soft; abdomen nontender, no guarding and abdomen not rigid Genitourinary OB Exam Abdomen: + fundal height Fundus: + firm and + relation to umbilicus (Below); not tender or not boggy Results & Data ([facility]) Vital Signs (Past 12 Hours) Vital Signs Temp Pulse Resp BP Pulse Ox 06/06/21 04:30 36.8 C 79 16 109/71 97 06/05/21 23:35 36.7 C 82 16 107/69 97
[2021-06-06] MEDS: PRENATAL VITAMIN 1 TAB PO SCH (09:14)
[2021-06-06] MEDS: FERROUS SULFATE 325 MG TAB PO SCH (09:14)
[2021-06-06] MEDS: DOCUSATE SODIUM 100 MG CAP PO SCH ×2 (09:15→20:27)
[2021-06-06] MEDS: DULoxetine HCL 30 MG CAP PO SCH (12:38)
[2021-06-06] MEDS: DULoxetine HCL 60 MG CAP PO SCH (12:38)
[2021-06-06] MEDS: buPROPion SR 100 MG TABCR PO SCH (12:38)
[2021-06-06] MEDS ORDERED: bisacodyL 5 MG TABEC PO SCH (20:00)
--- NOTE | 2021-06-07 06:55 | Obstetrical Progress Note ---
Date of Service June 07, 2021 Assessment & Plan (1) Encounter for care and examination after delivery: 26yo G1 day 1 S/P . Doing well. Stable for discharge Subjective Ambulation: ambulating normally Voiding: no voiding problems Passing Gas:: Yes Diet Tolerance:: regular diet Lochia:: Moderate Feeding Type:: breast feeding Physical Exam Constitutional WD/WN, vitals as above Respiratory normal respiratory effort; no respiratory distress and no labored breathing Gastrointestinal (Abdomen) Inspection/Auscultation: abdomen normal to inspection; abdomen not distended Percussion/Palpation: abdomen soft; abdomen nontender, no guarding and abdomen not rigid Genitourinary OB Exam Abdomen: + fundal height Fundus: + firm and + relation to umbilicus (Below); not tender or not boggy Results & Data ([facility]) Vital Signs (Past 12 Hours) Vital Signs Temp Pulse Resp BP Pulse Ox 06/06/21 23:25 36.8 C 64 20 107/67 97
[2021-06-07] MEDS: DULoxetine HCL 60 MG CAP PO SCH (09:21)
[2021-06-07] MEDS: DULoxetine HCL 30 MG CAP PO SCH (09:21)
[2021-06-07] MEDS: DOCUSATE SODIUM 100 MG CAP PO SCH (09:21)
[2021-06-07] MEDS: PRENATAL VITAMIN 1 TAB PO SCH (09:21)
[2021-06-07] MEDS: buPROPion SR 100 MG TABCR PO SCH (09:22)
[2021-06-07] MEDS: FERROUS SULFATE 325 MG TAB PO SCH (09:22)
== END 2021-06-07 12:15 | disposition home or self-care (01) | DRG 807 ==
LOC: OPB 06:20 → 4S1 06:23 → 4E2 19:15

== ENCOUNTER 2024-03-20 05:43 | Inpatient (IN) ==
[2024-03-20] MEDS ORDERED: ACETAMINOPHEN 325 MG TAB PO PRN ×2 (06:52→08:19)
[2024-03-20] MEDS ORDERED: CALCIUM CARBONATE 500 MG CHEWABLE TAB PO PRN (06:52)
--- NOTE | 2024-03-20 06:55 | History & Physical Report ---
Date of Service March 20, 2024 Assessment & Plan (1) GBS carrier: (2) Gestational diabetes mellitus (GDM) affecting : (3) with 37 weeks completed gestation: Plan early term labor with srom. admit. desires epidural. gbs antibiotics. Still see membranes so likely small leak. Would plan likely arom and then . fetus category one. History of Present Illness Chief Complaint: contractions, leaking Primary Care Provider: Eda Forman MD Patient is a with iup at 37 1/7 weeks who got up at 4am to go to the [place] and noted a trickle. Also noted onset of contractions about that time. NO bleeding. +fm. Hx of a delivery. and Delivery Plans Hx delivery @ 36+4 weeks *CX Length US Q 2 wk from 16-24 wks 16wk visit cervix is 3.9cm and closed GDM w/prior *Begin monthly Growth US's @24wks OB Labs: Blood Type O Positive 08/24/23 Antibody Screen NEGATIVE 08/24/23 Hgb 11.7 g/dl (12.0-16.0) L 01/22/24 Hct 35.0 % (37.0-47.0) L 01/22/24 MCV 88.4 fL (80.0-100.0) 08/24/23 Plt Count 236 K/uL (130-400) 08/24/23 Rubella IgG Antibody Immune (Immune) 08/24/23 RPR Nonreactive (Nonreactive) 08/24/23 Treponema pallidum Ab Negative (Negative) 01/22/24 Hep Bs Antigen Neg (Neg) 11/12/20 Hep Bs Antigen NON-REACTIVE (NON-REACTIVE) 08/24/23 Hepatitis C Ab (EIA) NON-REACTIVE (NON-REACTIVE) 08/24/23 HIV 1&2 Ab/P24 Ag 4thGn Neg (Neg) 11/12/20 HIV (1&2) Ag & Ab Conf NON-REACTIVE (NON-REACTIVE) 08/24/23 Glucose 1 Hr 50 gm 134 mg/dl (70-130) H 04/19/21 OB Optional Labs: Chlamydia trachomatis RNA Not Detected (NotDetected) 08/24/23 Neisseria gonorrhoeae RNA Not Detected (NotDetected) 08/24/23 Thyroid Stimulating Hormone (TSH) 0.972 uIu/ml (0.300-4.500) 12/08/19 Labs Reviewed: csf/sma-negative last --mln low risk panorama--akh gbs positive Allergies Allergy/AdvReac Type Severity Reaction Status Date / Time No Known Allergies Allergy Severe Verified 03/20/24 06:07 Home Medications Medication Instructions Recorded Confirmed Type bupropion HCl 200 mg tablet,12 hr 200 mg PO QAM 12/08/19 03/20/24 History sustained-release duloxetine 60 mg capsule,delayed 60 mg PO BID 12/08/19 03/20/24 History release 21-iron fu-folic acid PO DAILY 08/16/23 03/15/24 History [ Complete] acetone (urine) test (Ketone Urine #50 ea 10/09/23 03/15/24 Rx Test strips) blood-glucose meter (OneTouch #1 ea 10/09/23 03/15/24 Rx Verio Reflect Meter) blood sugar diagnostic (OneTouch #400 ea 10/11/23 03/15/24 Rx Verio test strips) lancets 33 gauge (OneTouch Delica #400 ea 10/11/23 03/15/24 Rx Plus Lancet) Patient History Medical History Varicella vaccination Encounter for care and examination after delivery Uterine size date discrepancy Encounter for anatomic survey Supervision of normal intrauterine in primigravida Encounter for preconception consultation Encounter for IUD removal Presence of IUD mirena 06/2017 Hypotension History of intrauterine contraceptive device mirena 06/2017 Surgical History Hx of tonsillectomy Encounter for intrauterine device placement Hx of laparoscopy July 2017, 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 Family History Grandmother (Maternal) Hx of diabetes mellitus Diabetes Breast cancer Mother Hx of endometriosis Endometriosis Aunt Hx of endometriosis Endometriosis Grandfather (Maternal) Family history of hypertension Hypertension Denies family history of Ovarian cancer Prostate cancer Migraine Myocardial infarction FH: thromboembolic disease Colorectal cancer Social History Smoking Status: Never smoker Second Hand Exposure: No; Do You Dip or Chew Tobacco: No; Hx Alcohol Use: No Hx Substance Use: No Preferred Language: German Communication Ability: Effective Visual Impairment: No Limitations 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 Date GA wks Lbr Lgth wt Sex Type del Anes Place Del Prov ? Comment 06/05/21 36 5lb 9oz F Epidu [facility] Dr. Olmedo Y GDM diet controlled, spontaneously labor [employer] History noncontributory Physical Exam Constitutional: WD/WN, vitals as above Gastrointestinal (Abdomen): soft, gravid Psychiatric: A+Ox3, euthymic affect Genitourinary: sse-- membranes seen, small amount of fluid noted, +fern/nitrazine sve--7/100/-1 toco--q4-6min efm--130s with mod varaibility, accels to 150s, no decels Results & Data Vital Signs (Past 12 Hours) Vital Signs Temp Pulse Resp BP 03/20/24 06:10 37.0 C 76 18 113/63 03/20/24 06:02 37.0 C 76 18 113/63 Coding Level of Care Code None Diagnoses GBS carrier Z22.330 Gestational diabetes mellitus (GDM) affecting O24.419 with 37 weeks completed gestation Z3A.37
[2024-03-20] MEDS: SODIUM CHLORIDE 0.9% 1,000 ML IV SCH (07:07)
[2024-03-20] MEDS: PENICILLIN GK 6 MU in SODIUM CHLORIDE 0.9% 250 ML IV STA (07:15)
[2024-03-20 07:21] LABS: Hematocrit (blood only) 34.6 % (37.0-47.0); Hemoglobin 12.1 g/dl (12.0-16.0); Mean Corpuscular Hemoglobin 30.3 pg (25.0-34.0); Mean Corpuscular Volume 86.7 fL (80.0-100.0); Mean Platelet Volume 9.6 fL (9.4-12.4); Platelet Count 196 K/uL (130-400); RDW Coefficient of Variation 12.3 % (11.5-14.5); RDW Standard Deviation 38.7 fL (36.4-46.3); Red Blood Count 3.99 M/uL (4.20-5.40); White Blood Count 12.55 K/ul (4.8-10.8)
[2024-03-20] MEDS: OXYTOCIN 30 UNITS/NSS 30 UNITS/500 ML BAG IV PRN ×2 (07:23→08:37)
[2024-03-20] MEDS: fentaNYL citrate PF 100 MCG/2 ML VIAL ONE (07:25)
[2024-03-20] MEDS: ePHEDrine sulfate 50 MG/ML AMP ONE (07:25)
[2024-03-20] MEDS: BUPIVACAINE 0.25% PF 30 ML VIAL ONE (07:25)
[2024-03-20] MEDS: fentANYL 2 MCG/ML BUPIVacaine 0.125%-NSS 100ML BAG ONE (07:26)
[2024-03-20] MEDS: LIDOCAINE 2%/EPINEPHRINE 1:200,000 20 ML PF ONE (07:26)
[2024-03-20] MEDS: LIDOCAINE 1% LOCAL 20 ML VIAL INFIL PRN (07:26)
[2024-03-20] MEDS: SODIUM CHLORIDE 0.9% PF INJ 10 ML VIAL ONE (07:26)
--- NOTE | 2024-03-20 07:39 | Delivery Summary ---
Vaginal Delivery Summary Date of Service March 20, 2024 Vaginal Delivery Summary and 1st Degree LAC (not perineum but labial only) Pre-operative Diagnosis: at 37 weeks active labor Post-operative Diagnosis: same Procedure: arom of forebag labial laceration and repair QBL: 307cc Anesthesia: local infiltration of lidocaine Procedure: Patient presented in active labor at 7cm and progressed rapidly to c/c/+1 and need to push. The patient pushed for two contractions to deliver a viable male in rop position. The nose and mouth were bulb suctioned on the perineum and the rest of the infant was then delivered without difficulty. The baby was vigorous. The nose and mouth were again bulb suctioned and the infant was placed in the maternal abdomen for drying and attention. Cord was clamped and cut at one minute of life. Cord blood and segment obtained. Placenta delivered spontaneous, intact with a three vessel cord. Cervix/sulci/rectum were intact. A small supraclitoral laceration was repaired in the normal standard fashion after infiltration with local lidocaine. Hemostasis obtained with dilute pitocin and fundal massage. Apgars were pending. Mother and baby doing well at the end of the delivery. [facility] [place]aginal Delivery Charge Delivery Type Details: and 1st Degree LAC (not perineum but labial only)
[2024-03-20] MEDS ORDERED: bisacodyL 10 MG SUPP PR PRN (08:19)
[2024-03-20] MEDS ORDERED: HYDROCORTISONE ACETATE 25 MG SUPP PR PRN (08:19)
[2024-03-20] MEDS ORDERED: oxyCODONE/ACETAMINOPHEN 5mg/325mg TAB PO PRN (08:19)
[2024-03-20] MEDS: PRENATAL VITAMIN 1 TAB PO SCH (08:38)
[2024-03-20] MEDS: BENZOCAINE 20% SPRY 85 APPLN/85 GM CAN EXT PRN (08:38)
[2024-03-20] MEDS: DOCUSATE SODIUM 100 MG CAP PO SCH (08:40)
[2024-03-20] MEDS ORDERED: PENICILLIN GK 3 MU in DEXTROSE 5% 100 ML IV PRN (09:52)
[2024-03-20] MEDS: DIPHTHER/TETAN/PERTUS Vaccine (Tdap, Adol/Adult) 0.5mL IM ONE (10:12)
[2024-03-20] MEDS: IBUPROFEN 600 MG TAB PO PRN (10:28)
[2024-03-20] MEDS ORDERED: DULoxetine HCL 60 MG CAP PO SCH (19:30)
[2024-03-21 05:59] LABS: Hematocrit (blood only) 33.2 % (37.0-47.0); Hemoglobin 11.2 g/dl (12.0-16.0)
--- NOTE | 2024-03-21 07:39 | Obstetrical Progress Note ---
Date of Service March 21, 2024 Assessment & Plan (1) state: Gabe Ortiz is a 28yo day 1 s/p with 1st deg perineal laceration. Feeling well this AM, VSS. Continue care Encourage ambulation and , supplementing Pain control as needed Hgb: 11.2, asymptomatic Home tomorrow 03/22/[address] Newell in 6wks. Admission and Anticipated Discharge Date Admission Date: March 20, 2024 Supervising Physician Co-Signing Physician Notes Resident Physician Supervision Note: I was present with Dr. Ramires during the history and exam. I discussed the case with the resident and agree with the findings and plan as documented in the note. Any exceptions or clarifications are listed here: [None] Documented By: Matty Jaime MD, FACOG Ashley Knott is a 36yo day 2 s/p with 1st deg perineal laceration. Feeling well this AM, endorses some sleep overnight. Pain: endorses some abdominal soreness, tolerable Ambulation: yes Gas: yes Voiding: urinating, no BM yet Lochia: decreasing Diet: tolerating well Feeds: and pumping, supplementing as needed Denies headache, chest pain, SOB, n/v/d, LE pain/swelling, LE numbness/tingling. Review of Systems Review of Systems: Denies fever, body aches, chills, sweats, vision changes, significant vaginal bleeding/discharge. Physical Exam Physical Exam: General: A&Ox3, resting comfortably in bed, in no apparent distress, nontoxic in appearance Skin: warm, dry, intact HEENT: EOM intact, PERRL b/l Cardiovascular: RRR, +s1/s2, no murmurs/rubs/gallops Pulmonary: clear to auscultation b/l, no wheezes/rales/rhonchi GI/Abd: +BS, uterine fundus firm, non-tender to palpation, level of umbilicus Extremities: no significant swelling or erythema of b/l LE, nontender to palpation, negative Say's b/l; warm, no clubbing or cyanosis Neuro: no facial droop, speech intact, moves all extremities on command Results & Data Vital Signs (Past 12 Hours) Vital Signs Temp Pulse Resp BP Pulse Ox O2 Del Method 03/21/24 04:30 36.7 C 83 16 104/57 L 96 Room Air 03/20/24 23:10 36.7 C 85 16 109/71 96 Room Air 03/20/24 19:45 36.8 C 90 18 100/64 97 Room Air Laboratory Results 03/21/24 Range/Units 05:43 Hgb 11.2 L (12.0-16.0) g/dl Hct 33.2 L (37.0-47.0) % Resident Activity Tracking Resident Involvement: Resident Care Provided Care Provided: OB Delivery
[2024-03-21] MEDS: DULoxetine HCL 60 MG CAP PO SCH (08:07)
[2024-03-21] MEDS: buPROPion HCl 100 MG TABLET PO ONE (08:07)
[2024-03-21 19:11] VITALS: RESP 16
[2024-03-21] MEDS ORDERED: bisacodyL 5 MG TABEC PO SCH (20:00)
--- NOTE | 2024-03-22 06:29 | Obstetrical Progress Note ---
Date of Service March 22, 2024 Assessment & Plan (1) state: Gabe Ortiz is a 28yo day 2 s/p with 1st deg perineal laceration. Feeling well this AM, VSS. Continue care Encourage ambulation and , supplementing Pain control as needed Hgb: 11.2, asymptomatic Home today Followup with Dr. Newell in 6wks. Admission and Anticipated Discharge Date Admission Date: March 20, 2024 Supervising Physician Co-Signing Physician Notes Patient seen with resident and agree with the above findings and plan. Stable for discharge Ashley Knott is a 36yo day 2 s/p with 1st deg perineal laceration. Feeling well this AM, endorses some sleep overnight. Pain: endorses some abdominal soreness, tolerable Ambulation: yes Gas: yes Voiding: urinating, no BM yet Lochia: decreasing Diet: tolerating well Feeds: and pumping, supplementing as needed Denies headache, chest pain, SOB, n/v/d, LE pain/swelling, LE numbness/tingling. Review of Systems Review of Systems: Denies fever, body aches, chills, sweats, vision changes, significant vaginal bleeding/discharge. Physical Exam Physical Exam: General: A&Ox3, resting comfortably in bed, in no apparent distress, nontoxic in appearance Skin: warm, dry, intact HEENT: EOM intact, PERRL b/l Cardiovascular: RRR, +s1/s2, no murmurs/rubs/gallops Pulmonary: clear to auscultation b/l, no wheezes/rales/rhonchi GI/Abd: +BS, uterine fundus firm, non-tender to palpation, level of umbilicus Extremities: no significant swelling or erythema of b/l LE, nontender to palpation, negative Say's b/l; warm, no clubbing or cyanosis Neuro: no facial droop, speech intact, moves all extremities on command Results & Data Vital Signs (Past 12 Hours) Vital Signs Temp Pulse Resp BP Pulse Ox O2 Del Method 03/21/24 23:15 36.8 C 93 H 16 108/72 97 Room Air 03/21/24 19:09 36.8 C 89 16 118/75 96 Room Air Laboratory Results 03/20/24 Range/Units 06:59 Treponema pallidum Ab Negative (Negative) Resident Activity Tracking Resident Involvement: Resident Care Provided Care Provided: OB Delivery
[2024-03-22 07:44] VITALS: BP 117/73; PULSE 80; TEMP 97.7; O2SAT 98
== END 2024-03-22 14:30 | disposition home or self-care (01) | DRG 807 ==
LOC: OPB 05:43 → 4S1 05:46 → 4E2 10:35